=== PATIENT | female | born 1965 | race Caucasian/White ===

== ENCOUNTER 2016-11-01 21:26 | Inpatient (IN) | payer MEDICAID ==
[~2016-11-01] VITALS: Ht 165.1 cm; Wt 94.7 kg
[~2016-11-01 21:26] MED LIST: BACT800T5 PO; LEVEMIR SQ; LORTA5 PO; NOVOLOGSS SQ
[2016-11-01 21:28] VITALS: BP 122/72; PULSE 128; RESP 20; TEMP 98.2; O2SAT 96
[2016-11-01] MEDS ORDERED: NOVOLOGP2 SQ (21:52)
[2016-11-01] MEDS ORDERED: LEVEMIR SQ (21:52)
[2016-11-01] MEDS ORDERED: CANA300T PO (22:10)
[2016-11-01] MEDS ORDERED: ASPI1TAB69 PO (22:10)
[2016-11-01] MEDS ORDERED: LISI10TA3 PO (22:10)
[2016-11-01] MEDS ORDERED: NITR0.4S SL (22:10)
[2016-11-01] MEDS ORDERED: ATOR10TA15 PO (22:10)
[2016-11-01] MEDS ORDERED: WOME5TAB PO (22:10)
[2016-11-01 22:12] VITALS: BP 116/59; PULSE 114; RESP 20; O2SAT 96
[2016-11-01] MEDS ORDERED: SODIUM CHLOR 0.9% 1000 ML INJ 1,000 ML IV ONE (22:21)
[2016-11-01] MEDS ORDERED: PIPERACIL-TAZO 4.5 GM PREMIX 100 ML IV STA (22:21)
[2016-11-01] MEDS ORDERED: HYDROmorphone HCL PF 1 MG/ML VIAL IV ONE (22:30)
[2016-11-01] MEDS ORDERED: ONDANSETRON HCL 4 MG/2 ML VIAL IV ONE (22:30)
--- NOTE | 2016-11-01 22:32 | PD ---
HPI Chief Complaint: Medical Clearance Time Seen by Provider: 22:21 Travel History International Travel<30 days: No Contact w/Intl Traveler<30days: No Traveled to known affect area: No History of Present Illness HPI 51-year-old female with history of diabetes, severe peripheral vascular disease status post bilateral femoral stents, status post left BKA, kidney stones, presents to the ER today because she states that she has had several weeks' history of numbness in her left leg, feels like her kidney stone issues or getting worse, and states that she has had pain and lump on her sacral area which has drained, and has had an area of discomfort on the right side of her vagina. She has been having subjective fevers. She denies any chest pains, shortness of breath, vomiting, abdominal pain, or any other symptoms. She states the pain is currently a 10 out of 10. She denies any new sexual activity. Modifying Factors: None Associated Signs & Symptoms: Numbness in the left leg, lower back pains, sacral area lump, drainage, vaginal area pain Risk Factors: Diabetic, peripheral vascular disease PFSH Past Medical History Hx Anticoagulant Therapy: Yes (ASA) Blood Disorders: No Depression: Yes Cancer: No Cardiac Catheterization: Yes Cardiovascular Problems: Yes ([place], STENT, HTN) High Cholesterol: Yes Chemotherapy: No Cerebrovascular Accident: No Diabetes: Yes Patient Takes Glucophage: No Diminished Hearing: No Deep Vein Thrombosis: Yes Endocrine: Yes Genitourinary: Yes (STONES) Hepatitis: No Hiatal Hernia: No Hypertension: Yes Immune Disorder: No Kidney Stones: Yes Musculoskeletal: No Neurologic: No Psychiatric: Yes (HX DEPRESSION) Reproductive: Yes (CYST ON LEFT OVARY) Respiratory: Yes (COPD) Immunizations Current: Yes Myocardial Infarction: Yes Thyroid Disease: No Tetanus Vaccination: Unknown ?: Not LMP: TUBAL Menopausal: Yes Tubal Ligation: Yes Past Surgical History Abdominal Surgery: Yes AICD: No Body Medical Devices: CARDIAC STENT Section: Yes Coronary Stent: Yes (X1) Genitourinary Surgery: Yes (LITHOTRIPSY) Gynecologic Surgery: Yes (TUBAL, C SEC) Hysterectomy: No Joint Replacement: No Pacemaker: No Thoracic Surgery: Yes (CARDIAC STENT) Other Surgery: Yes (LITHOTRIPSY/ STENT TO RIGHT GROIN(stent)) Social History Alcohol Use: No (very rare) Tobacco Use: Yes (PPD) Substance Use: Yes (OCC MARAJUANA) Allergies-Medications (Allergen,Severity, Reaction): Coded Allergies: Cipro (Verified Allergy, Severe, 11/01/16) UNKNOWN Levaquin (Verified Allergy, Severe, 11/01/16) "CODED" Reported Meds & Prescriptions Reported Meds & Active Scripts Active Reported Nitrostat SL (Nitroglycerin) 0.4 Mg Subl 0.4 Mg SL DIRECTED PRN 1 tablet under the tongue as needed for chest pain. Repeat every 5 minutes for a total of 3 DOSES or call 911 if NO relief. Atorvastatin (Atorvastatin Calcium) 10 Mg Tab 10 Mg PO HS Lisinopril 10 Mg Tab 10 Mg PO DAILY Womens Laxative DR (Bisacodyl) 5 Mg Tabdr 5 Mg PO DAILY Aspirin 81 Mg Tabdr 81 Mg PO DAILY Invokana (Canagliflozin) 300 Mg Tab 300 Mg PO HS Take before 1st meal of day. Novolog Inj (Insulin Aspart) 1,000 Unit/10 Ml Vial 1-9 Units SQ ACHS Max dose at bedtime:( )units; sugars less than 70,(0)units; sugars 150-199,(1) unit; sugars 200-249,(3) units; sugars 250-299,(5) units; sugars 300-349,(7) units; sugars greater than 349,(9) units Levemir Inj (Insulin Detemir) 1,000 unit/ 10 ML Vial 50 Units SQ HS Do not mix with any other Insulin. Review of Systems Except as stated in HPI: all other systems reviewed are Neg Physical Exam Narrative GENERAL: Well-nourished, well-developed middle age white female patient in no acute distress, status post right BKA. SKIN: Warm and dry. HEAD: Normocephalic. EYES: No scleral icterus. No injection or drainage. NECK: Supple, trachea midline. CARDIOVASCULAR: Regular rate and rhythm without murmurs, gallops, or rubs. RESPIRATORY: Breath sounds equal bilaterally. No accessory muscle use. GASTROINTESTINAL: Abdomen soft, non-tender, nondistended. GENITOURINARY: Normal external genitalia with a small ulcerated region in the right mucosal part of the labia minora with no surrounding edema or fluctuance. Vaginal vault without blood or drainage. MUSCULOSKELETAL: No cyanosis, or edema. BACK: Nontender without obvious deformity. No CVA tenderness. There is a self draining abscess on the sacrum with surrounding erythema but no underlying fluctuance, tender to palpation. Data Data Last Documented VS Vital Signs Date Time Temp Pulse Resp B/P Pulse Ox O2 Delivery O2 Flow Rate FiO2 11/02/16 00:06 98 20 106/55 91 Nasal Cannula 2 11/01/16 21:28 98.2 Orders Complete Blood Count With Diff (11/01/16 22:21) Comprehensive Metabolic Panel (11/01/16 22:21) Lactic Acid Sepsis Protocol (11/01/16 22:21) Urinalysis - C+S If Indicated (11/01/16 22:21) Blood Culture (11/01/16 22:21) Blood Glucose (11/01/16 22:21) Ecg Monitoring (11/01/16 22:21) Iv Access Insert/Monitor (11/01/16 22:21) Oximetry (11/01/16 22:21) Oxygen Administration (11/01/16 22:21) Hydromorphone Pf Inj (Dilaudid Pf Inj) (11/01/16 22:30) Ondansetron Inj (Zofran Inj) (11/01/16 22:30) Piperacil-Tazo 4.5 Gm Premix (Zosyn 4.5 (11/01/16 22:21) Sodium Chlor 0.9% 1000 Ml Inj (Ns 1000 M (11/01/16 22:21) Wound Culture And Gram Stain (11/01/16 22:43) Urine Culture (11/01/16 22:42) Sodium Chlor 0.9% 1000 Ml Inj (Ns 1000 M (11/02/16 00:00) Insulin Human Regular Inj (Novolin R Inj (11/02/16 00:00) Vancomycin Inj (Vancomycin Inj) (11/02/16 00:00) Admit Order (Ed Use Only) (11/02/16 00:29) Labs Laboratory Tests Test 11/01/16 2 22:42 22:45 White Blood Count 16.3 TH/MM3 Red Blood Count 5.61 MIL/MM3 Hemoglobin 15.5 GM/DL Hematocrit 45.9 % Mean Corpuscular Volume 81.9 FL Mean Corpuscular Hemoglobin 27.6 PG Mean Corpuscular Hemoglobin 33.7 % Concent Red Cell Distribution Width 15.1 % Platelet Count 367 TH/MM3 Mean Platelet Volume 9.0 FL Neutrophils (%) (Auto) 65.8 % Lymphocytes (%) (Auto) 24.8 % Monocytes (%) (Auto) 5.5 % Eosinophils (%) (Auto) 2.4 % Basophils (%) (Auto) 1.5 % Neutrophils # (Auto) 10.8 TH/MM3 Lymphocytes # (Auto) 4.0 TH/MM3 Monocytes # (Auto) 0.9 TH/MM3 Eosinophils # (Auto) 0.4 TH/MM3 Basophils # (Auto) 0.2 TH/MM3 CBC Comment DIFF FINAL Differential Comment Urine Color YELLOW Urine Turbidity HAZY Urine pH 5.5 Urine Specific [place] 1.021 Urine Protein TRACE mg/dL Urine Glucose (UA) 1000 mg/dL Urine Ketones NEG mg/dL Urine Occult Blood TRACE Urine Nitrite POS Urine Bilirubin NEG Urine Urobilinogen LESS THAN 2.0 MG/DL Urine Leukocyte Esterase LARGE Urine RBC 6 /hpf Urine WBC /hpf Urine WBC Clumps MOD Urine Squamous Epithelial 1 /hpf Cells Urine Bacteria MANY /hpf Urine Hyaline Casts 2 /lpf Urine Mucus FEW /lpf Microscopic Urinalysis Comment CATH-CULTURE IND Sodium Level 134 MEQ/L Potassium Level 4.1 MEQ/L Chloride Level 100 MEQ/L Carbon Dioxide Level 23.9 MEQ/L Anion Gap 10 MEQ/L Blood Urea Nitrogen 14 MG/DL Creatinine 1.09 MG/DL Estimat Glomerular Filtration 53 ML/MIN Rate Random Glucose 359 MG/DL Calcium Level 9.3 MG/DL Total Bilirubin 0.2 MG/DL Aspartate Amino Transf 22 U/L (AST/SGOT) Alanine Aminotransferase 33 U/L (ALT/SGPT) Alkaline Phosphatase 100 U/L Total Protein 7.7 GM/DL Albumin 3.1 GM/DL Lactic Acid Level 3.0 mmol/L [facility] Medical Decision Making Medical Screen Exam Complete: Yes Emergency Medical Condition: Yes Medical Record Reviewed: Yes Interpretation(s) Laboratory Tests Test 11/01/16 11/01/16 22:42 22:45 White Blood Count 16.3 TH/MM3 (4.0-11.0) Red Blood Count 5.61 MIL/MM3 (4.00-5.30) Hemoglobin 15.5 GM/DL (11.6-15.3) Neutrophils # (Auto) 10.8 TH/MM3 (1.8-7.7) Urine Turbidity HAZY (CLEAR) Urine Glucose (UA) 1000 mg/dL (NEG) Urine Occult Blood TRACE (NEG) Urine Nitrite POS (NEG) Urine Leukocyte Esterase LARGE (NEG) Urine RBC 6 /hpf (0-3) Urine WBC Clumps MOD (NONE) Urine Bacteria MANY /hpf (NONE) Urine Mucus FEW /lpf (OCC) Sodium Level 134 MEQ/L (136-145) Creatinine 1.09 MG/DL (0.50-1.00) Estimat Glomerular Filtration 53 ML/MIN (>89) Rate Random Glucose 359 MG/DL (74-106) Albumin 3.1 GM/DL (3.4-5.0) Lactic Acid Level 3.0 mmol/L (0.4-2.0) Differential Diagnosis Self draining sacral abscess, left numbness, lower back pain, vaginal area ulcer rule out sepsis versus UTI/pyelonephritis Narrative Course Lab work shows leukocytosis and lactate level elevation. She has a significant UTI. She also has significant signs of sacral abscess. IV antibiotics has been given in the ER and IV fluids had been given. At this point, patient's blood pressure does appear improved but patient will need further treatment. Case is discussed with Dr. Moreau for admission. Diagnosis Primary Impression: Sepsis associated hypotension Additional Impressions: Abscess of sacrum UTI (urinary tract infection) Admitting Information Admitting Physician Requests: Admit Nam Peres MD Nov 01, 2016 22:32
[2016-11-01 23:00] LABS: AUTOMATED NEUTROPHIL # 10.8 TH/MM3 (1.8-7.7); BASOPHIL # 0.2 TH/MM3 (0-0.2); BASOPHIL % 1.5 % (0.0-2.0); EOSINOPHIL # 0.4 TH/MM3 (0-0.4); EOSINOPHIL % 2.4 % (0.0-4.0); HEMATOCRIT 45.9 % (35.0-46.0); HEMO FLAGS DIFF FINAL; LYMPH % 24.8 % (9.0-44.0); MEAN CELL VOLUME 81.9 FL (80.0-100.0); MEAN CORPUSCULAR HEMOGLOBIN 27.6 PG (27.0-34.0); MEAN CORPUSCULAR HGB CONC 33.7 % (32.0-36.0); MONO % 5.5 % (0.0-8.0); NEUT % 65.8 % (16.0-70.0); PLATELET COUNT 367 TH/MM3 (150-450); RED BLOOD COUNT 5.61 MIL/MM3 (4.00-5.30); RED CELL DISTRIBUTION WIDTH 15.1 % (11.6-17.2); WHITE BLOOD COUNT 16.3 TH/MM3 (4.0-11.0)
[2016-11-01 23:15] LABS: BACTERIA, URINE MANY /hpf; BLOOD, URINE TRACE (NEG); GLUCOSE,URINE 1000 mg/dL (NEG); HYALINE CAST, URINE 2 /lpf (RARE); KETONE, URINE NEG (NEG); MUCUS URINE FEW /lpf (OCC); PH, URINE 5.5 (5.0-8.5); SQUAMOUS EPITHELIAL CELL URINE 1 /hpf (0-5); URINE COLOR YELLOW (YELLW/STRAW)
[2016-11-01 23:16] LABS: COMMENT (UR) CATH-CULTURE IND; CULTURE IF INDICATED CATH CULTURE IND; NITRITE,URINE POS (NEG)
[2016-11-01 23:25] LABS: ALKALINE PHOSPHATASE 100 U/L (45-117); ALT (GPT) 33 U/L (10-53); ANION GAP 10 MEQ/L (5-15); AST (GOT) 22 U/L (15-37); BICARBONATE 23.9 MEQ/L (21.0-32.0); BLOOD UREA NITROGEN 14 MG/DL (7-18); CHLORIDE 100 MEQ/L (98-107); GLOMERULAR FILTRATION RATE 53 ML/MIN (>89); POTASSIUM 4.1 MEQ/L (3.5-5.1); SODIUM (NA) 134 MEQ/L (136-145); TOTAL BILIRUBIN ADULT 0.2 MG/DL (0.2-1.0)
[2016-11-02] VITALS (11 sets, daily range): BP systolic 72–126; BP diastolic 42–70; PULSE 72–105; RESP 16–20; TEMP 97.4–98.4; O2SAT 91–100
[2016-11-02] MEDS ORDERED: SODIUM CHLOR 0.9% 1000 ML INJ 1,000 ML IV ONE
[2016-11-02] MEDS ORDERED: VANCOMYCIN INJ 1,000 MG in SODIUM CHLOR 0.9% 250 ML INJ 250 ML IV STA ×2
[2016-11-02] MEDS ORDERED: INSULIN HUMAN REGULAR 1,000 UNITS/10 ML VIAL IV PUSH ONE
[2016-11-02] MEDS ORDERED: NALOXONE HCL 0.4 MG/ML AMP IV PRN (00:30)
[2016-11-02] MEDS ORDERED: Vancomycin Consult Pharmacy 1 EA OTHER SCH (00:30)
[2016-11-02] MEDS ORDERED: ONDANSETRON HCL 4 MG/2 ML VIAL IVP PRN (00:30)
[2016-11-02] MEDS ORDERED: GLUCAGON 1 MG/ML VIAL OTHER PRN (00:45)
[2016-11-02] MEDS ORDERED: DEXTROSE 50% IN WATER 50 ML VIAL(D50) IV PUSH PRN (00:45)
[2016-11-02 00:50] LABS: LACTIC ACID GHOST NOT REPORTABLE
[2016-11-02] MEDS: SODIUM CHLOR 0.9% 1000 ML INJ 1,000 ML IV SCH ×3 (02:07→20:45)
--- NOTE | 2016-11-02 02:18 | HHI.HP ---
[facility] Primary [facility] Physician No Primary Care Physician Admission Diagnosis sepsis/uti Diagnoses: Chief Complaint: hole in my butt, self driaing, 2 weeks; a knot inside my vagina 1 week, Travel History International Travel<30 Days: No Contact w/Intl Traveler <30 Da: No Traveled to Known Affected Are: No History of Present Illness History from patient, ER physician communication, and review of medical records. Patient reported that she came to the hospital because for the past 3 days, she was having some hole within her butt cheeks and that it was draining. Patient reports she has been mostly lying down and has been putting pressure on her buttocks when she is sitting on her wheelchair. This pressure then developed into an abscess. She was also reports of cyst within her right labia/vaginal area that she was trying to pop. Reports of subjective fevers. Also reports she was having nausea. She also states that she was having left lower extremity numbness with pain in her bilateral flank areas. She states that she gets these type of pains every time she has kidney stones. She states it is bilateral but her left side is much worse than the right. She states that usually she would get these left lower extremity numbness with back pain and if her daughter helps her crack her back, the pain would go away. The only time it doesn't go away is when she has kidney stones. She is stating that this time it is not going away. Patient also reports of pain and burning when she urinates. She states whenever the urine had to go through this cyst, she gets the symptoms. Denies any melena/hematochezia/hematemesis/hematuria. Denies any chest pain/shortness of breath/palpitations/syncopal episodes. 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 sx in [place] - right bka march 2008 Past Surgical History dental extraction R leg BKA Lithotripsy tubal ligation coronary angiogram foot surgery Reported Medications pt's med list on EMR - reviewed Allergies: Coded Allergies: Cipro (Verified Allergy, Severe, 11/01/16) UNKNOWN Levaquin (Verified Allergy, Severe, 11/01/16) "CODED" Family History adopted, does not know hx Social History smoke 2 packs a day social drinker marijuana occasionally for phantom pain Physical Exam Vital Signs Vital Signs Date Time Temp Pulse Resp B/P Pulse Ox O2 Delivery O2 Flow Rate FiO2 11/02/16 01:45 92 20 106/65 96 Nasal Cannula 3 11/02/16 00:45 97 20 107/70 96 Nasal Cannula 3 11/02/16 00:06 98 20 106/55 91 Nasal Cannula 2 11/02/16 00:00 105 20 76/43 91 Room Air 72/42 11/01/16 22:12 114 20 116/59 96 Room Air 11/01/16 21:28 98.2 128 20 122/72 96 Room Air Physical Exam GENERAL: This is a well-nourished, well-developed patient, in no apparent distress. Entire room smells of cigarette SKIN: sacral in between butt cheeks draining abscess, right labia nabothian cyst HEAD: Atraumatic. Normocephalic. No temporal or scalp tenderness. EYES: No scleral icterus. No injection or drainage. ENT: Nose without bleeding, purulent drainage or septal hematoma. Airway patent. NECK: Trachea midline. No JVD CARDIOVASCULAR: Regular rate and rhythm without murmurs, gallops, or rubs. RESPIRATORY: bilaterally decreased air entry GASTROINTESTINAL: Abdomen soft, non-tender, nondistended. No guarding. MUSCULOSKELETAL: Extremities without clubbing, cyanosis, or edema. No calf tenderness. Right BKA. Stump clean. NEUROLOGICAL: Awake and alert.Normal speech. Laboratory Laboratory Tests Test 11/01/16 11/01/16 11/02/16 22:42 22:45 01:10 White Blood Count 16.3 Red Blood Count 5.61 Hemoglobin 15.5 Hematocrit 45.9 Mean Corpuscular Volume 81.9 Mean Corpuscular Hemoglobin 27.6 Mean Corpuscular Hemoglobin 33.7 Concent Red Cell Distribution Width 15.1 Platelet Count 367 Mean Platelet Volume 9.0 Neutrophils (%) (Auto) 65.8 Lymphocytes (%) (Auto) 24.8 Monocytes (%) (Auto) 5.5 Eosinophils (%) (Auto) 2.4 Basophils (%) (Auto) 1.5 Neutrophils # (Auto) 10.8 Lymphocytes # (Auto) 4.0 Monocytes # (Auto) 0.9 Eosinophils # (Auto) 0.4 Basophils # (Auto) 0.2 CBC Comment DIFF FINAL Differential Comment Urine Color YELLOW Urine Turbidity HAZY Urine pH 5.5 Urine Specific [place] 1.021 Urine Protein TRACE Urine Glucose (UA) 1000 Urine Ketones NEG Urine Occult Blood TRACE Urine Nitrite POS Urine Bilirubin NEG Urine Urobilinogen LESS THAN 2.0 Urine Leukocyte Esterase LARGE Urine RBC 6 Urine WBC Urine WBC Clumps MOD Urine Squamous Epithelial 1 Cells Urine Bacteria MANY Urine Hyaline Casts 2 Urine Mucus FEW Microscopic Urinalysis Comment CATH-CULTURE IND Sodium Level 134 Potassium Level 4.1 Chloride Level 100 Carbon Dioxide Level 23.9 Anion Gap 10 Blood Urea Nitrogen 14 Creatinine 1.09 Estimat Glomerular Filtration 53 Rate Random Glucose 359 Calcium Level 9.3 Total Bilirubin 0.2 Aspartate Amino Transf 22 (AST/SGOT) Alanine Aminotransferase 33 (ALT/SGPT) Alkaline Phosphatase 100 Total Protein 7.7 Albumin 3.1 Lactic Acid Level 3.0 2.1 Date/Time Procedure Status Source Growth 11/01/16 23:49 Gram Stain Received Wound Buttock Pending 11/01/16 23:49 Wound Culture Received Wound Buttock Pending 11/01/16 22:43 Aerobic Blood Culture Received Blood Peripheral Pending 11/01/16 22:43 Anaerobic Blood Culture Received Blood Peripheral Pending 11/01/16 22:42 Urine Culture Received Urine Catheterized Urine Pending Result Diagram: 11/01/16 2242 11/01/16 2242 Imaging Last 48 hours Impressions Abdomen/Pelvis CT 11/02/16 0000 Signed Impressions: Service Date/Time: Wednesday, November 02, 2016 05:30 - CONCLUSION: 1. Small nonobstructing renal stones seen bilaterally. 2. Gallstone. 3. Colonic diverticula. Hudson Gutierrez MD Assessment and Plan Problem List: (1) UTI (urinary tract infection) ICD Code: N39.0 Status: Acute (2) Abscess of sacrum ICD Code: M46.28 Status: Acute Assessment and Plan Impression: Sacral decubiti/abscessself draining. Nabothian cyst UTI Leukocytosis with left shift Hypotensionsomewhat baseline. Patient reports she now is only taking blood pressure medications because of this hypotension. 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 Wound care consult for possible drainage and wound cultures. Patient was started on vancomycin and Zosyn in ER. We'll continue for now until culture results. We'll follow urine culture results. As to her hypotension, I do think that this is due to baseline status compounded by acute infectious state/sepsis. Patient received 2 L normal saline bolus in ER. Continue maintenance IV fluids at 100 cc per hour normal saline. Pain control. Nausea control. DVT prophylaxiswith Lovenox. GI prophylaxison pantoprazole. Code Status DNR. Patient in front of her nurse told me that she is DNR. She does not want any intervention if her heart stops or if she has any trouble breathing. She does not have [facility] [place] DNR papers but she states that all her children are aware of her wishes and that she always tells hospital staff every time she comes here that she is DNR. Discussed Condition With Patient, ER physician, patient's nurse Physician Certification 2 Midnight Certification Type: Admission for Inpatient Services Order for Inpatient Services The services are ordered in accordance with Medicare regulations or non- Medicare payer requirements, as applicable. In the case of services not specified as inpatient-only, they are appropriately provided as inpatient services in accordance with the 2-midnight benchmark. Estimated LOS (days): 2 days is the estimated time the patient will need to remain in the hospital, assuming treatment plan goals are met and no additional complications. Post-Hospital Plan: Home Mónica Moreau MD Nov 02, 2016 02:18
[2016-11-02] MEDS ORDERED: ALPRAZolam 0.25 MG TAB PO ONE (03:30)
[2016-11-02] MEDS: NICOTINE 21 MG/24 HR PATCH TD SCH (03:58)
[2016-11-02] MEDS: PIPERACIL-TAZO 4.5 GM PREMIX 100 ML IV SCH ×4 (04:51→22:08)
[2016-11-02] MEDS: HYDROmorphone HCL PF 1 MG/ML VIAL IV PUSH PRN ×4 (04:57→22:08)
[2016-11-02] MEDS: INSULIN ASPART SUPPLEMENTAL SCALE SQ SCH ×4 (05:57→20:46)
--- NOTE | 2016-11-02 06:07 | RADRPT ---
EXAM DATE/TIME: 11/02/2016 05:30 [place] COMPARISON: CT ABDOMEN & PELVIS W/O CONTRAST, July 03, 2014, 18:25. INDICATIONS : Bilateral abdomen pain -evaluate for possible renal stone ORAL CONTRAST: No oral contrast ingested. RADIATION DOSE: 20.60 CTDIvol (mGy) MEDICAL HISTORY : Hypertension. Chronic obstructive pulmonary disease. Cardiovascular diseaserenal stone SURGICAL HISTORY : section. Tubal ligation.Lithotripsy ENCOUNTER: Initial ACUITY: 2 days PAIN SCALE: 5/10 LOCATION: abdomen TECHNIQUE: Volumetric scanning of the abdomen and pelvis was performed. Using automated exposure control and ad justment of the mA and/or kV according to patient size, radiation dose was kept as low as reasonably achievable to obtain optimal diagnostic quality images. FINDINGS: LOWER LUNGS: The visualized lower lungs are clear. LIVER: Homogeneous density without lesion. There is no dilation of the biliary tree. There is a calcified g allstone. SPLEEN: Normal size without lesion. PANCREAS: Within normal limits. KIDNEYS: There are small less than 5 mm nonobstructing renal stones seen bilaterally. No hydronephrosis is see n. ADRENAL GLANDS: Within normal limits. VASCULAR: There is no aortic aneurysm. BOWEL/MESENTERY: There are scattered colonic diverticula without inflammatory change. ABDOMINAL WALL: Within normal limits. RETROPERITONEUM: There is no lymphadenopathy. BLADDER: No wall thickening or mass. REPRODUCTIVE: Within normal limits. INGUINAL: There is no lymphadenopathy or hernia. MUSCULOSKELETAL: Within normal limits for patient age. CONCLUSION: 1. Small nonobstructing renal stones seen bilaterally. 2. Gallstone. 3. Colonic diverticula. Hudson Gutierrez MD on November 02, 2016 at 6:03 Board Certified Radiologist. This report was verified electronically.
[2016-11-02] MEDS: ENOXAPARIN SODIUM 40 MG/0.4 ML SYRINGE SQ SCH (09:00)
[2016-11-02] MEDS: ASPIRIN EC 81 MG TABEC PO SCH (09:00)
[2016-11-02] MEDS: PANTOPRAZOLE SOD 40 MG DELAYED RELEASE TAB PO SCH (09:00)
[2016-11-02] MEDS: SODIUM CHLORIDE 0.9% FLUSH 5 ML FLUSH FLUSH SCH ×2 (09:00→20:47)
--- NOTE | 2016-11-02 10:58 | HHI.PR ---
Subjective Remarks Follow-up UTI/nephrolithiasis 11/02/16-patient seen and examined, afebrile complaints of abdominal pain and requesting an adjustment of her narcotics Objective Vitals Vital Signs Date Time Temp Pulse Resp B/P Pulse Ox O2 Delivery O2 Flow Rate FiO2 11/02/16 08:00 98.0 78 16 104/61 95 11/02/16 04:00 98.4 90 18 100/57 93 11/02/16 03:00 Room Air 11/02/16 02:00 97.7 80 18 106/65 96 11/02/16 01:45 92 20 106/65 96 Nasal Cannula 3 11/02/16 00:45 97 20 107/70 96 Nasal Cannula 3 11/02/16 00:06 98 20 106/55 91 Nasal Cannula 2 11/02/16 00:00 105 20 76/43 91 Room Air 72/42 11/01/16 22:12 114 20 116/59 96 Room Air 11/01/16 21:28 98.2 128 20 122/72 96 Room Air I/O 11/01/16 11/01/16 11/01/16 11/02/16 11/02/16 11/02/16 07:00 15:00 23:00 07:00 15:00 23:00 Intake Total 240 ml Balance 240 ml Intake Oral 240 ml # Voids 1 # Bowel Movements 0 Result Diagram: 11/01/162 11/01/16 2242 Imaging Last Impressions Abdomen/Pelvis CT 11/02/16 0000 Signed Impressions: Service Date/Time: Wednesday, November 02, 2016 05:30 - CONCLUSION: 1. Small nonobstructing renal stones seen bilaterally. 2. Gallstone. 3. Colonic diverticula. Hudson Gutierrez MD Objective Remarks GENERAL: NAD SKIN: Warm and dry. HEAD: Normocephalic. EYES: No scleral icterus. No injection or drainage. NECK: Supple, trachea midline. No JVD or lymphadenopathy. CARDIOVASCULAR: Regular rate and rhythm without murmurs, gallops, or rubs. RESPIRATORY: Breath sounds equal bilaterally. No accessory muscle use. GASTROINTESTINAL: Abdomen soft, non-tender, nondistended. MUSCULOSKELETAL: No cyanosis, or edema. Right BKA BACK: Nontender without obvious deformity. No CVA tenderness. A/P Problem List: (1) UTI (urinary tract infection) ICD Code: N39.0 Status: Acute (2) Abscess of sacrum ICD Code: M46.28 Status: Acute Assessment and Plan 51-year-old female with Sacral decubiti/abscessself draining. Sepsis: Secondary to UTI versus sacral decubitus; continue with vancomycin and Zosyn, monitor cultures UTI: Currently on vancomycin and Zosyn pending urine culture Hypotensioncontinue gentle IV fluid hydration Nephrolithiasis: Will consult urology Chronic pain syndromeon pain medications as an outpatient Hypertension- secondary to hypotension, continue to hold all medications Hyperlipidemia: Continue with statin DM2: Low insulin sliding scale, resume outpatient medications CAD 2012 cath here, RCA stenosis, no stent PAD COPD: No exacerbation, DuoNeb when necessary. 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 GI prophylaxison pantoprazole Kwaku Aguero MD Nov 02, 2016 10:57
[2016-11-02] MEDS: VANCOMYCIN INJ 1,500 MG in SODIUM CHLORID 0.9% 500 ML INJ 500 ML IV SCH (12:00)
[2016-11-02] MEDS: ATORVASTATIN 10 MG TAB PO SCH (20:45)
[2016-11-02] MEDS: INSULIN DETEMIR 100 UNITS/ML VIAL SQ SCH (20:47)
[2016-11-02] MEDS: PATIENT OWN MEDICATION PO SCH (20:48)
[2016-11-03] VITALS (7 sets, daily range): BP systolic 113–148; BP diastolic 60–71; PULSE 69–89; RESP 16–18; TEMP 97.5–98.5; O2SAT 96–99
[2016-11-03] MEDS: HYDROmorphone HCL PF 1 MG/ML VIAL IV PUSH PRN ×5 (02:17→20:57)
[2016-11-03] MEDS: NICOTINE 21 MG/24 HR PATCH TD SCH (02:17)
[2016-11-03] MEDS: PIPERACIL-TAZO 4.5 GM PREMIX 100 ML IV SCH ×4 (03:10→20:54)
[2016-11-03] MEDS: VANCOMYCIN INJ 1,500 MG in SODIUM CHLORID 0.9% 500 ML INJ 500 ML IV SCH ×2 (05:26→17:12)
[2016-11-03] MEDS: SODIUM CHLOR 0.9% 1000 ML INJ 1,000 ML IV SCH ×2 (05:27→17:10)
[2016-11-03] MEDS: INSULIN ASPART SUPPLEMENTAL SCALE SQ SCH ×4 (05:54→21:03)
[2016-11-03] MEDS: SODIUM CHLORIDE 0.9% FLUSH 5 ML FLUSH FLUSH SCH ×2 (08:10→21:01)
[2016-11-03] MEDS: ENOXAPARIN SODIUM 40 MG/0.4 ML SYRINGE SQ SCH (08:11)
[2016-11-03] MEDS: PANTOPRAZOLE SOD 40 MG DELAYED RELEASE TAB PO SCH (08:11)
[2016-11-03] MEDS: ASPIRIN EC 81 MG TABEC PO SCH (08:11)
[2016-11-03 08:33] LABS: AUTOMATED NEUTROPHIL # 6.6 TH/MM3 (1.8-7.7); BASOPHIL # 0.1 TH/MM3 (0-0.2); BASOPHIL % 0.5 % (0.0-2.0); EOSINOPHIL # 0.4 TH/MM3 (0-0.4); EOSINOPHIL % 3.5 % (0.0-4.0); HEMATOCRIT 43.9 % (35.0-46.0); HEMO FLAGS DIFF FINAL; LYMPH % 29.2 % (9.0-44.0); LYMPHOCYTE # 3.2 TH/MM3 (1.0-4.8); MEAN CELL VOLUME 83.5 FL (80.0-100.0); MEAN CORPUSCULAR HEMOGLOBIN 26.9 PG (27.0-34.0); MEAN CORPUSCULAR HGB CONC 32.2 % (32.0-36.0); NEUT % 59.8 % (16.0-70.0); PLATELET COUNT 264 TH/MM3 (150-450); RED BLOOD COUNT 5.26 MIL/MM3 (4.00-5.30)
[2016-11-03] MEDS ORDERED: INFLUENZA VIRUS VACCINE (QUADRIVALENT) 0.5 ML SYR IM ONE (09:00)
[2016-11-03 09:13] LABS: BICARBONATE 22.6 MEQ/L (21.0-32.0); POTASSIUM 3.8 MEQ/L (3.5-5.1)
--- NOTE | 2016-11-03 10:08 | HHI.PR ---
Subjective Remarks Follow-up UTI/nephrolithiasis 11/02/16-patient seen and examined, afebrile complaints of abdominal pain and requesting an adjustment of her narcotics 11/03/16-patient seen and examined, complains of left lower extremity numbness otherwise no other issues. Afebrile Objective Vitals Vital Signs Date Time Temp Pulse Resp B/P Pulse Ox O2 Delivery O2 Flow Rate FiO2 11/03/16 08:00 97.6 80 18 148/70 99 11/03/16 04:00 97.9 69 16 129/70 97 11/03/16 00:00 97.8 72 16 113/65 96 11/03/16 00:00 97.8 72 16 113/65 96 11/02/16 20:12 74 11/02/16 20:00 97.4 72 16 115/64 95 11/02/16 20:00 Room Air 11/02/16 16:00 97.4 79 16 107/59 95 11/02/16 12:00 97.9 81 16 126/58 100 I/O 11/02/16 11/02/16 11/02/16 11/03/16 11/03/16 11/03/16 07:00 15:00 23:00 07:00 15:00 23:00 Intake Total 240 ml 0 ml 1792 ml 875 ml Output Total 225 ml Balance 240 ml -225 ml 1792 ml 875 ml Intake Oral 240 ml 0 ml IV Total 1792 ml 875 ml Output Urine Total 225 ml # Voids 1 1 # Bowel Movements 0 0 Result Diagram: 11/03/16 0751 11/03/16 0751 Objective Remarks GENERAL: NAD SKIN: Warm and dry. HEAD: Normocephalic. EYES: No scleral icterus. No injection or drainage. NECK: Supple, trachea midline. No JVD or lymphadenopathy. CARDIOVASCULAR: Regular rate and rhythm without murmurs, gallops, or rubs. RESPIRATORY: Breath sounds equal bilaterally. No accessory muscle use. GASTROINTESTINAL: Abdomen soft, non-tender, nondistended. MUSCULOSKELETAL: No cyanosis, or edema. Right BKA BACK: Nontender without obvious deformity. No CVA tenderness. A/P Problem List: (1) UTI (urinary tract infection) ICD Code: N39.0 Status: Acute (2) Abscess of sacrum ICD Code: M46.28 Status: Acute Assessment and Plan 51-year-old female with Sacral decubiti/abscessAppreciate input from Wound care nurse. Treatment with 50/50 mix of Santyl ointment and gentamicin ointment Sepsis: Resolved. Secondary to UTI versus sacral decubitus; continue with vancomycin and Zosyn, monitor cultures UTI: Currently on vancomycin and Zosyn pending urine culture Hypotensionimproved gentle IV fluid hydration Nephrolithiasis: Consider urology consultation PVD: We'll check JAYDEN on left lower extremity Chronic pain syndromeon pain medications as an outpatient Hypertension- secondary to hypotension, continue to hold all medications Hyperlipidemia: Continue with statin DM2: Low insulin sliding scale, resume outpatient medications CAD 2012 cath here, RCA stenosis, no stent PAD COPD: No exacerbation, DuoNeb when necessary. 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 GI prophylaxison pantoprazole Kwaku Aguero MD Nov 03, 2016 10:08
[2016-11-03] MEDS ORDERED: MAGNESIUM HYDROXIDE SUSP 30 ML CUP PO PRN (12:30)
[2016-11-03] MEDS: GENTAMICIN SULFATE 0.1% OINT 15 GM TUBE TOPICAL SCH ×2 (13:00→18:00)
--- NOTE | 2016-11-03 14:01 | RADRPT ---
EXAM DATE/TIME: 11/03/2016 00:00 [facility] COMPARISON: No previous studies available for comparison. INDICATIONS : Peripheral vascular disease, chronic pain syndrome TECHNIQUE: Five-station segmental examination of the lower extremities was performed. Pulsed-cuff waveform tracings and pressures were recorded. Ankle-brachial indices and toe-brachial indices were calculated. PRESSURES (mmHg): Brachial (arm): Right 138 Left IV Lower Thigh: Right AMPUTEE Left 80 Calf: Right Left 71 Ankle: Right Left 66 Toe: Right Left 0 JAYDEN: Right Left 0.48 TBI: Right Left 0.00 PULSED CUFF WAVEFORMS: Blunted and monophasic tracings. CONCLUSION: Severe inflow and moderate runoff disease. Unobtainable toe pressures Hudson Cornelius MD on November 03, 2016 at 13:58 Board Certified Radiologist. This report was verified electronically.
[2016-11-03] MEDS: PATIENT OWN MEDICATION PO SCH (21:00)
[2016-11-03] MEDS: ATORVASTATIN 10 MG TAB PO SCH (21:02)
[2016-11-03] MEDS: INSULIN DETEMIR 100 UNITS/ML VIAL SQ SCH (21:03)
[2016-11-04] VITALS: BP 155/71; PULSE 81; RESP 18; TEMP 97.8; O2SAT 96
[2016-11-04] MEDS: NICOTINE 21 MG/24 HR PATCH TD SCH (01:54)
[2016-11-04] MEDS: SODIUM CHLOR 0.9% 1000 ML INJ 1,000 ML IV SCH (01:55)
[2016-11-04] MEDS: HYDROmorphone HCL PF 1 MG/ML VIAL IV PUSH PRN ×4 (01:55→14:34)
[2016-11-04] MEDS: SODIUM CHLORIDE 0.9% FLUSH 5 ML FLUSH FLUSH PRN ×2 (01:56→06:18)
[2016-11-04 04:00] VITALS: BP 146/67; PULSE 85; RESP 19; TEMP 97.7; O2SAT 95
[2016-11-04] MEDS: PIPERACIL-TAZO 4.5 GM PREMIX 100 ML IV SCH (04:29)
[2016-11-04] MEDS: VANCOMYCIN INJ 1,500 MG in SODIUM CHLORID 0.9% 500 ML INJ 500 ML IV SCH (06:16)
[2016-11-04] MEDS: INSULIN ASPART SUPPLEMENTAL SCALE SQ SCH ×2 (06:17→14:42)
[2016-11-04 08:00] VITALS: BP 137/73; PULSE 80; RESP 18; TEMP 98.4; O2SAT 97
[2016-11-04] MEDS ORDERED: CEFUROXIME AXETIL 500 MG TAB PO SCH (09:00)
[2016-11-04] MEDS ORDERED: COLLAGENASE OINT 30 GM TUBE TOP SCH (09:00)
--- NOTE | 2016-11-04 09:03 | HHI.PR ---
Subjective Remarks Follow-up UTI/sepsis 11/02/16-patient seen and examined, afebrile complaints of abdominal pain and requesting an adjustment of her narcotics 11/03/16-patient seen and examined, complains of left lower extremity numbness otherwise no other issues. Afebrile 11/04/16-patient seen and examined in the presence of Beverly, charge nurse, the complains of left lower extremity pain. Requesting increased narcotics. UTI Escherichia coli. JAYDEN with severe inflow and moderate runoff disease Objective Vitals Vital Signs Date Time Temp Pulse Resp B/P Pulse Ox O2 Delivery O2 Flow Rate FiO2 11/04/16 04:00 97.7 85 19 146/67 95 11/04/16 00:00 97.8 81 18 155/71 96 11/03/16 21:00 84 11/03/16 20:00 97.9 89 18 148/71 96 11/03/16 20:00 Room Air 11/03/16 14:35 97.5 84 16 132/60 97 11/03/16 12:00 98.5 82 16 137/71 97 I/O 11/03/16 11/03/16 11/03/16 11/04/16 11/04/16 11/04/16 07:00 15:00 23:00 07:00 15:00 23:00 Intake Total 875 ml 600 ml 480 ml 240 ml Output Total 1600 ml Balance 875 ml -1000 ml 480 ml 240 ml Intake Oral 600 ml 480 ml 240 ml IV Total 875 ml Output Urine Total 1600 ml # Voids 3 3 # Bowel Movements 1 0 0 Result Diagram: 11/03/16 0751 11/03/16 0751 Imaging Last Impressions Abdomen/Pelvis CT 11/02/16 0000 Signed Impressions: Service Date/Time: Wednesday, November 02, 2016 05:30 - CONCLUSION: 1. Small nonobstructing renal stones seen bilaterally. 2. Gallstone. 3. Colonic diverticula. Hudson Gutierrez MD Objective Remarks GENERAL: NAD SKIN: Warm and dry. HEAD: Normocephalic. EYES: No scleral icterus. No injection or drainage. NECK: Supple, trachea midline. No JVD or lymphadenopathy. CARDIOVASCULAR: Regular rate and rhythm without murmurs, gallops, or rubs. RESPIRATORY: Breath sounds equal bilaterally. No accessory muscle use. GASTROINTESTINAL: Abdomen soft, non-tender, nondistended. MUSCULOSKELETAL: No cyanosis, or edema. Right BKA BACK: Nontender without obvious deformity. No CVA tenderness. Procedures none A/P Problem List: (1) UTI (urinary tract infection) ICD Code: N39.0 Status: Acute (2) Abscess of sacrum ICD Code: M46.28 Status: Acute (3) Sepsis associated hypotension ICD Code: A41.9 Status: Acute (4) Diabetes mellitus ICD Code: 250.00 Status: Chronic Assessment and Plan 51-year-old female with Sacral decubiti/abscessAppreciate input from Wound care nurse. Treatment with 50/50 mix of Santyl ointment and gentamicin ointment Sepsis: Resolved. Secondary to UTI versus sacral decubitus; continue with vancomycin and Zosyn, monitor cultures UTI-=: DC vancomycin and Zosyn and start Ceftin 500 mg by mouth twice a day Hypotensionimproved gentle IV fluid hydration Nephrolithiasis: Asymptomatic PVD: JAYDEN with severe inflow and moderate runoff disease; check Doppler left lower extremity rule out clots Chronic pain syndromeon pain medications as an outpatient Hypertension- secondary to hypotension, continue to hold all medications Hyperlipidemia: Continue with statin DM2: Low insulin sliding scale, continue outpatient medications CAD 2012 cath here, RCA stenosis, no stent COPD: No exacerbation, DuoNeb when necessary. 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 GI prophylaxison pantoprazole Kwaku Aguero MD Nov 04, 2016 09:03
[2016-11-04] MEDS ORDERED: COLL30T TOP (09:06)
[2016-11-04] MEDS ORDERED: CEFT500T3 PO (09:06)
[2016-11-04] MEDS ORDERED: NORC5TAB PO (09:06)
[2016-11-04] MEDS ORDERED: LACTCHW3 CHEW (09:06)
[2016-11-04] MEDS ORDERED: GENT0.1O2 TOPICAL (09:06)
--- NOTE | 2016-11-04 09:08 | HHI.FF ---
Face to Face Verification Diagnosis: (1) Sepsis associated hypotension (2) Abscess of sacrum Home Health Nursing Order: Signs/symptoms of disease process Wound care and dressing changes I have seen patient Alejandra Willard on 11/04/16. My clinical findings support the need for the requested home health care services because: Deconditioned w/ increased weakness I certify that my clinical findings support that this patient is homebound because: Poor cardiac reserve Kwaku Aguero MD Nov 04, 2016 09:07
[2016-11-04] MEDS: PANTOPRAZOLE SOD 40 MG DELAYED RELEASE TAB PO SCH (09:53)
[2016-11-04] MEDS: ASPIRIN EC 81 MG TABEC PO SCH (09:53)
[2016-11-04] MEDS: ENOXAPARIN SODIUM 40 MG/0.4 ML SYRINGE SQ SCH (09:54)
[2016-11-04] MEDS: SODIUM CHLORIDE 0.9% FLUSH 5 ML FLUSH FLUSH SCH (10:17)
[2016-11-04] MEDS: GENTAMICIN SULFATE 0.1% OINT 15 GM TUBE TOPICAL SCH (10:17)
--- NOTE | 2016-11-04 11:48 | RADRPT ---
EXAM DATE/TIME: 11/04/2016 10:40 [facility] COMPARISON: No previous studies available for comparison. INDICATIONS : Left leg pain. MEDICAL HISTORY : Myocardial infarction. Hypercholesterolemia. Methicillin-resistant Staphylococcus aureus. AAA. A-F ib. Hypertension. DVT. UTI. SURGICAL HISTORY : Coronary artery stent. Tubal ligation. section. Cardiac cath. Lithotripsy. RBK amputation. Right groin stent. ENCOUNTER: Initial ACUITY: 1 day PAIN SCORE: 2/10 LOCATION: Left leg. TECHNIQUE: Venous ultrasound of the leg was performed from the inguinal ligament to the proximal calf. Real-zaheer e, color Doppler and spectral tracing, compression and augmentation techniques were used. FINDINGS: There is normal compressibility of the deep venous system from the inguinal region to the proximal ca lf. No echogenic clot is seen in the lumen of the common femoral, femoral, popliteal, and posterior tibial veins. There is a normal response of the venous system to proximal and distal augmentation an d respiration. CONCLUSION: No DVT. Tristan José MD on November 04, 2016 at 11:47 Board Certified Radiologist. This report was verified electronically.
[2016-11-04 12:00] VITALS: BP 144/71; PULSE 79; RESP 18; TEMP 98; O2SAT 97
--- NOTE | 2016-11-04 15:48 | HHI.DS ---
Discharge Summary Admission Date Nov 02, 2016 at 00:31 Discharge Date: Nov 04, 2016 Admitting Diagnosis sepsis/uti (1) UTI (urinary tract infection) ICD Code: N39.0 (2) Abscess of sacrum ICD Code: M46.28 (3) Sepsis associated hypotension ICD Code: A41.9 (4) Diabetes mellitus ICD Code: 250.00 Procedures none Brief History - From Admission History from patient, ER physician communication, and review of medical records. Patient reported that she came to the hospital because for the past 3 days, she was having some hole within her butt cheeks and that it was draining. Patient reports she has been mostly lying down and has been putting pressure on her buttocks when she is sitting on her wheelchair. This pressure then developed into an abscess. She was also reports of cyst within her right labia/vaginal area that she was trying to pop. Reports of subjective fevers. Also reports she was having nausea. She also states that she was having left lower extremity numbness with pain in her bilateral flank areas. She states that she gets these type of pains every time she has kidney stones. She states it is bilateral but her left side is much worse than the right. She states that usually she would get these left lower extremity numbness with back pain and if her daughter helps her crack her back, the pain would go away. The only time it doesn't go away is when she has kidney stones. She is stating that this time it is not going away. Patient also reports of pain and burning when she urinates. She states whenever the urine had to go through this cyst, she gets the symptoms. Denies any melena/hematochezia/hematemesis/hematuria. Denies any chest pain/shortness of breath/palpitations/syncopal episodes. CBC/BMP: 11/03/16 0751 11/03/16 0751 Significant Findings Laboratory Tests Test 11/01/16 11/01/16 11/02/16 11/03/16 22:42 22:45 01:10 07:51 Sodium Level 134 MEQ/L (136-145) Creatinine 1.09 MG/DL (0.50-1.00) Estimat Glomerular Filtration 53 ML/MIN (>89) Rate Random Glucose 359 MG/DL 159 MG/DL (74-106) (74-106) Albumin 3.1 GM/DL (3.4-5.0) White Blood Count 16.3 TH/MM3 (4.0-11.0) Red Blood Count 5.61 MIL/MM3 (4.00-5.30) Hemoglobin 15.5 GM/DL (11.6-15.3) Neutrophils # (Auto) 10.8 TH/MM3 (1.8-7.7) Urine Turbidity HAZY (CLEAR) Urine Glucose (UA) 1000 mg/dL (NEG) Urine Occult Blood TRACE (NEG) Urine Nitrite POS (NEG) Urine Leukocyte Esterase LARGE (NEG) Urine RBC 6 /hpf (0-3) Urine WBC Clumps MOD (NONE) Urine Bacteria MANY /hpf (NONE) Urine Mucus FEW /lpf (OCC) Lactic Acid Level 3.0 mmol/L 2.1 mmol/L (0.4-2.0) (0.4-2.0) Mean Corpuscular Hemoglobin 26.9 PG (27.0-34.0) Chloride Level 109 MEQ/L (98-107) Calcium Level 8.1 MG/DL (8.5-10.1) Imaging Last Impressions Lower Extremity Ultrasound 11/04/16 0000 Signed Impressions: Service Date/Time: Friday, November 04, 2016 10:40 - CONCLUSION: No DVT. Tristan José MD Abdomen/Pelvis CT 11/02/16 0000 Signed Impressions: Service Date/Time: Wednesday, November 02, 2016 05:30 - CONCLUSION: 1. Small nonobstructing renal stones seen bilaterally. 2. Gallstone. 3. Colonic diverticula. Hudson Gutierrez MD PE at Discharge GENERAL: NAD SKIN: Warm and dry. HEAD: Normocephalic. EYES: No scleral icterus. No injection or drainage. NECK: Supple, trachea midline. No JVD or lymphadenopathy. CARDIOVASCULAR: Regular rate and rhythm without murmurs, gallops, or rubs. RESPIRATORY: Breath sounds equal bilaterally. No accessory muscle use. GASTROINTESTINAL: Abdomen soft, non-tender, nondistended. MUSCULOSKELETAL: No cyanosis, or edema. Right BKA BACK: Nontender without obvious deformity. No CVA tenderness. Hospital Course Sacral decubiti/abscessAppreciate input from Wound care nurse. Treatment with 50/50 mix of Santyl ointment and gentamicin ointment Sepsis: Resolved. Secondary to UTI versus sacral decubitus; she was treated with IV antibiotics including Zosyn and vancomycin. UTI-=: Initially on vancomycin and Zosyn however these were discontinued and patient started on Ceftin 500 mg by mouth every 12 prior to discharge as urine grew Escherichia coli. Hypotensionresponding to IV fluid hydration Nephrolithiasis: Asymptomatic PVD: JAYDEN with severe inflow and moderate runoff disease; check Doppler left lower extremity rule out clots Chronic pain syndromeon pain medications as an outpatient Hypertension- secondary to hypotension, continue to hold all medications Hyperlipidemia: Continue with statin DM2: Low insulin sliding scale, continue outpatient medications CAD 2012 cath here, RCA stenosis, no stent COPD: No exacerbation, DuoNeb when necessary. 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 GI prophylaxison pantoprazole Pt Condition on Discharge: Stable Discharge Disposition: Disch w/ Home Health Serv Discharge Time: <= 30 minutes Discharge Instructions DIET: Follow Instructions for: Diabetic Diet Activities you can perform: Regular-No Restrictions Follow up Referrals: [facility] PCP Follow-up - 1 Week New Medications: Hydrocodone-Acetaminophen ([place]) 5-325 mg Tab 1 TAB PO Q6H PRN PAIN #15 Ref 0 TAB Lactobacillus Acidophilus (Lactinex) 1 Chew 1 TAB CHEW DAILY Nutritional Supplement #30 Ref 0 TAB Cefuroxime (Ceftin) 500 Mg Tab 500 MG PO Q12HR Infection #14 TAB Collagenase (Santyl) 250 Unit/Gm Oin 1 APPLIC TOP DAILY Infection #1 TUBE Gentamicin Topical (Gentamicin Topical) 0.1% Oint 1 APPLIC TOPICAL TID Infection #1 TUBE Continued Medications: Aspirin (Aspirin) 81 Mg Tabdr 81 MG PO DAILY TAB Atorvastatin (Atorvastatin) 10 Mg Tab 10 MG PO HS Cholesterol Management #30 Ref [address] (Womens Laxative DR) 5 Mg Tabdr 5 MG PO DAILY TAB Canagliflozin (Invokana) 300 Mg Tab 300 MG PO HS Take before 1st meal of day. Blood Sugar Management #30 Ref 0 TAB Insulin Aspart Inj (Novolog Inj) 1,000 Unit/10 Ml Vial 1-9 UNITS SQ ACHS Max dose at bedtime:( )units; sugars less than 70,(0)units; sugars 150-199,(1) unit; sugars 200-249,(3) units; sugars 250-299,(5) units; sugars 300-349,(7) units; sugars greater than 349,(9) units Blood Sugar Management #10 Ref 0 ML Insulin Detemir Inj (Levemir Inj) 1,000 unit/ 10 ML Vial 50 UNITS SQ HS Do not mix with any other Insulin. Blood Sugar Management Ref 0 VIAL Lisinopril (Lisinopril) 10 Mg Tab 10 MG PO DAILY #30 Ref 0 TAB Nitroglycerin SL (Nitrostat SL) 0.4 Mg Subl 0.4 MG SL DIRECTED 1 tablet under the tongue as needed for chest pain. Repeat every 5 minutes for a total of 3 DOSES or call 911 if NO relief. PRN CHEST PAIN #100 Ref 0 TAB.SL Kwaku Aguero MD Nov 04, 2016 15:48
[2016-11-04] MEDS ORDERED: PHARMACY ORDERED LAB XX ONE (17:45)
== END 2016-11-04 16:34 | disposition home health service (06) | DRG 872 ==
LOC: NEPC 21:26 → NEDA 11-02 00:31 → N04A 11-02 02:14
PROVIDERS: ADMIT Hospitalist; ATTEND Hospitalist
DX: A41.9 Sepsis, unspecified organism (principal); L89.159 Pressure ulcer of sacral region, unspecified stage; I95.9 Hypotension, unspecified; E11.51 Type 2 diabetes mellitus with diabetic peripheral angiopathy without gangrene; N20.0 Calculus of kidney; G54.6 Phantom limb syndrome with pain; N39.0 Urinary tract infection, site not specified; B96.20 Unspecified Escherichia coli [E. coli] as the cause of diseases classified elsewhere; L02.212 Cutaneous abscess of back [any part, except buttock and flank]; J44.9 Chronic obstructive pulmonary disease, unspecified; Z23 Encounter for immunization; G89.4 Chronic pain syndrome; I10 Essential (primary) hypertension; E78.5 Hyperlipidemia, unspecified; I25.10 Atherosclerotic heart disease of native coronary artery without angina pectoris; Z89.511 Acquired absence of right leg below knee; Z79.82 Long term (current) use of aspirin; Z79.4 Long term (current) use of insulin; F17.210 Nicotine dependence, cigarettes, uncomplicated; F12.90 Cannabis use, unspecified, uncomplicated; N88.8 Other specified noninflammatory disorders of cervix uteri; Z66 Do not resuscitate
CPT/HCPCS: 74176; 76937; 80048; 80053; 81001; 82948; 83605; 85025; 86403; 87040; 87070; 87077; 87086; 87147; 87186; 87205; 90686; 93923; 93971; 96365; 96374; 96375; J1170; J1650; J1815; J2405; J2543; J3370; J7030; J7040; J7050; Q2038